=== PATIENT | male | born 1935 | race Caucasian/White ===

== ENCOUNTER 2020-05-27 13:26 | Emergency (ER) | payer OTHER, BC ==
[~2020-05-27] VITALS: Ht 188 cm; Wt 105.7 kg
[2020-05-27 14:48] LABS: BASOPHILS # (AUTO) 0.1 X10'3 (0-0.2); BASOPHILS % (AUTO) 0.5 % (0-1); EOSINOPHILS # (AUTO) 0.3 X10'3 (0-0.9); EOSINOPHILS % (AUTO) 2.7 % (0-6); HEMATOCRIT 41.6 % (42.0-52.0); HEMOGLOBIN 13.2 g/dl (14.0-17.9); LYMPHOCYTES # (AUTO) 1.8 X10'3 (1.1-4.8); LYMPHOCYTES % (AUTO) 15.9 % (21-51); MEAN CORPUSCULAR HEMOGLOBIN 26.1 PG (27.0-31.0); MEAN CORPUSCULAR HGB CONC 31.7 g/dL (33.0-36.5); MEAN CORPUSCULAR VOLUME 82.2 FL (78-98); MONOCYTES # (AUTO) 0.7 X10'3 (0-0.9); MONOCYTES % (AUTO) 6.1 % (2-12); NEUTROPHILS # (AUTO) 8.3 X10'3 (1.8-7.7); NEUTROPHILS % (AUTO) 74.8 % (42-75); PLATELET COUNT 353 X10'3 (140-440); RED BLOOD COUNT 5.06 X10'6 (4.70-6.10); RED CELL DISTRIBUTION WIDTH 13.8 % (11.5-14.5); WHITE BLOOD COUNT 11.1 X10'3 (4.5-11.0)
[2020-05-27 15:03] LABS: ALANINE AMINOTRANSFERASE 22 U/L (12-78); ALBUMIN 3.7 G/DL (3.4-5.0); ALBUMIN/GLOBULIN RATIO 1.1 (1.1-1.5); ALKALINE PHOSPHATASE 86 IU/L (46-116); ANION GAP 10 (8-16); ASPARTATE AMINO TRANSFERASE 18 U/L (10-37); BILIRUBIN,TOTAL 0.4 MG/DL (0.1-1.0); BLOOD UREA NITROGEN 15 MG/DL (7-18); CALCIUM 8.8 MG/DL (8.5-10.1); CHLORIDE 105 MMOL/L (99-107); CREATININE 1.25 MG/DL (0.60-1.10); GLUCOSE 126 MG/DL (70-104); POTASSIUM 4.3 MMOL/L (3.5-5.1); SODIUM 141 MMOL/L (135-145); TOTAL CARBON DIOXIDE 26.3 MMOL/L (24-32); eGFR 55 ML/MIN
[2020-05-27 15:11] LABS: MAGNESIUM 1.9 MG/DL (1.5-2.4)
[2020-05-27] MEDS ORDERED: aspirin 325mg tablet PO ONE (15:30)
[2020-05-27] MEDS ORDERED: amiodarone 150mg/dext, iso-os 100 ML IV ONE (16:45)
[2020-05-27] MEDS ORDERED: AMIO200T61 PO (16:49)
[2020-05-27 17:08] VITALS: BP 114/55
== END 2020-05-27 17:37 | disposition home or self-care (01) ==
LOC: ER 13:27
DX: R77.8 Other specified abnormalities of plasma proteins (principal); I25.10 Atherosclerotic heart disease of native coronary artery without angina pectoris; Z98.890 Other specified postprocedural states; Z95.0 Presence of cardiac pacemaker; Z72.89 Other problems related to lifestyle; Z79.899 Other long term (current) drug therapy
CPT/HCPCS: 36415; 71045; 80053; 83735; 83880; 84100; 84484; 85025; 96365; 96374; 99285

== ENCOUNTER 2023-02-05 11:03 | Inpatient (IN) | payer OTHER, MEDICARE ==
[~2023-02-05] VITALS: Ht 188 cm; Wt 84.1 kg
--- NOTE | 2023-02-05 12:03 | NUR ---
DAUGHTER MEETA [phone]
[2023-02-05 14:36] LABS: CLARITY,URINE BLOODY (Clear); COLOR,URINE RED (Yellow); UA COLLECTION TYPE CLN CATCH MIDSTREAM
[2023-02-05 14:38] LABS: RBC,URINE TNTC /HPF (0-2)
[2023-02-05 14:39] LABS: BACTERIA,URINE FEW /HPF (Neg); SQUAMOUS EPITHELIAL CELL,UR NONE SEEN /LPF (FEW)
[2023-02-05 17:02] LABS: BASOPHILS % (AUTO) 0.4 % (0-1); EOSINOPHILS # (AUTO) 0.2 X10'3 (0-0.9); EOSINOPHILS % (AUTO) 2.1 % (0-6); HEMATOCRIT 34.8 % (42.0-52.0); HEMOGLOBIN 11.3 g/dl (14.0-17.9); LYMPHOCYTES % (AUTO) 16.6 % (21-51); MEAN CORPUSCULAR HEMOGLOBIN 29.3 PG (27.0-31.0); MEAN CORPUSCULAR HGB CONC 32.6 g/dL (33.0-36.5); MEAN PLATELET VOLUME 7.6 FL (7.4-10.4); MONOCYTES # (AUTO) 0.9 X10'3 (0-0.9); MONOCYTES % (AUTO) 7.5 % (2-12); NEUTROPHILS # (AUTO) 8.8 X10'3 (1.8-7.7); NEUTROPHILS % (AUTO) 73.4 % (42-75); PLATELET COUNT 381 X10'3 (140-440); RED BLOOD COUNT 3.87 X10'6 (4.70-6.10); RED CELL DISTRIBUTION WIDTH 14.6 % (11.5-14.5)
[2023-02-05 17:23] LABS: ALANINE AMINOTRANSFERASE 25 U/L (12-78); ALBUMIN 3.8 G/DL (3.4-5.0); ALKALINE PHOSPHATASE 72 IU/L (46-116); ANION GAP 12 (8-16); ASPARTATE AMINO TRANSFERASE 31 U/L (10-37); BILIRUBIN,TOTAL 0.5 MG/DL (0.1-1.0); BLOOD UREA NITROGEN 75 MG/DL (7-18); BUN/CREATININE RATIO 30.5 (10.0-20.0); CALCIUM 9.5 MG/DL (8.5-10.1); CHLORIDE 105 MMOL/L (99-107); CREATININE 2.46 MG/DL (0.60-1.10); GLUCOSE 162 MG/DL (70-104); POTASSIUM 4.9 MMOL/L (3.5-5.1); SODIUM 137 MMOL/L (135-145); TOTAL CARBON DIOXIDE 19.7 MMOL/L (24-32); TOTAL PROTEIN 7.5 G/DL (6.4-8.2); eCRCL 26 ML/MIN; eGFR 25 ML/MIN
[2023-02-05] MEDS ORDERED: insulin Lispro (HumaLOG) vial - multi-dose SQ SCH (18:40)
[2023-02-05] MEDS ORDERED: acetaminophen 325mg tablet PO PRN (18:40)
[2023-02-05] MEDS ORDERED: magnesium Cl slow-release 64mg tablet PO PRN (18:40)
[2023-02-05] MEDS ORDERED: HYDROcodone/acetaminophen 10/325mg tab PO PRN (18:40)
[2023-02-05] MEDS ORDERED: dextrose 50%-water 50ml dispensing syringe IV PRN ×2 (18:40)
[2023-02-05] MEDS ORDERED: mag hydrox/Alum hydrox/simeth 30ml oral suspension PO PRN (18:40)
[2023-02-05] MEDS ORDERED: magnesium 4gm in 100ml NS 100 ML IV PRN (18:40)
[2023-02-05] MEDS ORDERED: HYDROcodone/acetaminophen 5mg/325mg tablet PO PRN (18:40)
[2023-02-05] MEDS ORDERED: ondansetron/PF 4mg/2ml inj IV PRN (18:40)
[2023-02-05] MEDS ORDERED: potassium Cl 20 mEq SR tablet PO PRN ×2 (18:40)
[2023-02-05] MEDS ORDERED: potassium Cl 40MEQ/1/2NS 520ml 520 ML IV PRN (18:40)
[2023-02-05] MEDS ORDERED: DEXTROSE 15 GM of carb/4 tabs (each vial/BOTTLE has 4 tablets) PO PRN ×2 (18:40)
[2023-02-05] MEDS ORDERED: magnesium 2GM in 50ml NS 50 ML IV PRN (18:40)
[2023-02-05] MEDS ORDERED: magnesium hydroxide 30ml (MOM) UD suspension PO PRN (18:40)
[2023-02-05] MEDS ORDERED: MESSAGE TO PHARMACY PO ONE (18:40)
[2023-02-05] MEDS ORDERED: glucagon, human recombinant 1mg kit SUBCUT PRN (18:40)
[2023-02-05] MEDS ORDERED: diphenhydrAMINE 25mg capsule PO PRN (18:40)
[2023-02-05] MEDS: K and/or MAG REPLACEMENT MC SCH (19:08)
[2023-02-05 19:17] LABS: HEMOGLOBIN A1C 5.2 % (4.5-6.2)
[2023-02-05] MEDS ORDERED: FURO20TA4 PO (20:10)
[2023-02-05] MEDS ORDERED: METO50TA16 PO (20:10)
[2023-02-05] MEDS ORDERED: SPIR25TA5 PO (20:10)
[2023-02-05] MEDS: docusate sod 100mg capsule PO SCH (20:12)
[2023-02-05 20:30] VITALS: BP 141/71; PULSE 89; RESP 16; TEMP 97.8; O2SAT 92
[2023-02-05] MEDS: insulin glargine (Lantus) pen - multi-dose SQ SCH (21:00)
[2023-02-05] MEDS ORDERED: APIX5TAB3 PO (21:49)
[2023-02-05] MEDS: CefTRIAXone/D5W-Rocephin 1gm 50 ML IV SCH (22:09)
[2023-02-05 22:30] VITALS: BP 128/48; PULSE 81; RESP 16; TEMP 97.9; O2SAT 97
[2023-02-06] MEDS: potassium CL 20mEq in D5-1/2NS 1,000 ML IV SCH ×2 (01:46→13:30)
[2023-02-06 06:00] VITALS: BP 113/54; PULSE 81; RESP 16; TEMP 97.3; O2SAT 98
--- NOTE | 2023-02-06 06:04 | NUR ---
reported to days. noted pt on iv fluids, voiding w/o difficulty with clots noted at this time.
[2023-02-06 06:52] LABS: BASOPHILS % (AUTO) 0.4 % (0-1); EOSINOPHILS # (AUTO) 0.3 X10'3 (0-0.9); EOSINOPHILS % (AUTO) 2.8 % (0-6); HEMATOCRIT 33.2 % (42.0-52.0); HEMOGLOBIN 11.1 g/dl (14.0-17.9); LYMPHOCYTES # (AUTO) 2.1 X10'3 (1.1-4.8); LYMPHOCYTES % (AUTO) 18.3 % (21-51); MEAN CORPUSCULAR HGB CONC 33.4 g/dL (33.0-36.5); MEAN CORPUSCULAR VOLUME 89.8 FL (78-98); MEAN PLATELET VOLUME 8.1 FL (7.4-10.4); MONOCYTES # (AUTO) 0.9 X10'3 (0-0.9); MONOCYTES % (AUTO) 7.8 % (2-12); NEUTROPHILS # (AUTO) 8.3 X10'3 (1.8-7.7); NEUTROPHILS % (AUTO) 70.7 % (42-75); PLATELET COUNT 365 X10'3 (140-440); RED BLOOD COUNT 3.69 X10'6 (4.70-6.10); RED CELL DISTRIBUTION WIDTH 14.5 % (11.5-14.5); WHITE BLOOD COUNT 11.7 X10'3 (4.5-11.0)
[2023-02-06 07:21] LABS: ALANINE AMINOTRANSFERASE 26 U/L (12-78); ALBUMIN 3.5 G/DL (3.4-5.0); ALKALINE PHOSPHATASE 67 IU/L (46-116); ANION GAP 12 (8-16); ASPARTATE AMINO TRANSFERASE 32 U/L (10-37); BILIRUBIN,TOTAL 0.4 MG/DL (0.1-1.0); BLOOD UREA NITROGEN 68 MG/DL (7-18); BUN/CREATININE RATIO 30.1 (10.0-20.0); CALCIUM 9.3 MG/DL (8.5-10.1); CHLORIDE 107 MMOL/L (99-107); CREATININE 2.26 MG/DL (0.60-1.10); GLUCOSE 182 MG/DL (70-104); MAGNESIUM 2.7 MG/DL (1.5-2.4); POTASSIUM 4.6 MMOL/L (3.5-5.1); SODIUM 137 MMOL/L (135-145); TOTAL CARBON DIOXIDE 18.2 MMOL/L (24-32); TOTAL PROTEIN 7.1 G/DL (6.4-8.2); eCRCL 28 ML/MIN; eGFR 28 ML/MIN
[2023-02-06 07:24] LABS: % IRON SATURATION 16 % (11-46); IRON 39 UG/DL (53-167); TOTAL IRON BINDING CAPACITY 243 UG/DL (259-388)
[2023-02-06] MEDS: docusate sod 100mg capsule PO SCH ×2 (07:51→20:00)
[2023-02-06] MEDS: lactose-reduced food (Ensure Enlive) - 237ml bottle PO SCH ×4 (07:52→21:37)
[2023-02-06 08:00] VITALS: RESP 14
[2023-02-06] MEDS ORDERED: furosemide 20MG tablet PO SCH (08:00)
[2023-02-06] MEDS ORDERED: spironolactone 25 MG tablet PO SCH (08:00)
[2023-02-06] MEDS: K and/or MAG REPLACEMENT MC SCH ×2 (08:00→20:00)
[2023-02-06 08:07] LABS: FERRITIN 295 NG/ML (26-388)
[2023-02-06] MEDS: metoprolol tartrate 50mg tablet PO SCH ×2 (08:24→21:20)
[2023-02-06 10:03] VITALS: BP 140/61; PULSE 83; RESP 16; TEMP 97.2; O2SAT 96
--- NOTE | 2023-02-06 11:27 | NUR ---
DM/Malnutrition Consults: Pt admit DX UTI, polyuria, hematuria, afib, anemia, and acute renal failure per EMR. Pt hx DM though current A1C 5.2% on renal/heart healthy/carb controlled/EC7/thin diets w/ no teeth in EMR; RD d/w resident MD who is agreeable to regular diet given age-updated diet now in EMR. RD notified dietary will send chopped meats for ease of PO given no teeth. Pt presents w/ mild weakness, no edema, nickel sized open area to R buttock and pending scaled wt this admit w/ no recent scaled wt hx in EMR. Pt appears WD/WN per MD note w/ PO pending first meal WB this AM in EMR. At this time pt lacks minimum two malnutrition criteria. Noted Ensure Enlive TIDWM ordered to start today per MD; will monitor for further nutrition intervention needs and malnutrition criteria this admit. Rec: 1. continue regular/EC7/thin diet w/ chopped meats for ease of PO since no teeth per MD; continue regular diet given age/stature 2. Ensure Enlive TIDWM per MD; encourage PO meals/ONS Addendum: 02/06/23 at [address] Amended: Links added.
[2023-02-06 18:00] VITALS: BP 146/53; PULSE 79; RESP 16; TEMP 97.6; O2SAT 99
--- NOTE | 2023-02-06 19:11 | NUR ---
Problems reprioritized. Patient report given, questions answered & plan of care reviewed with Yara ANTHONY.
[2023-02-06] MEDS: insulin glargine (Lantus) pen - multi-dose SQ SCH (21:00)
[2023-02-06 21:17] VITALS: BP 126/55; PULSE 83; RESP 16; O2SAT 99
[2023-02-06] MEDS: CefTRIAXone/D5W-Rocephin 1gm 50 ML IV SCH (21:37)
[2023-02-06 22:00] VITALS: BP 126/48; PULSE 63; RESP 16; TEMP 97.5; O2SAT 97
--- NOTE | 2023-02-06 22:00 | NUR ---
PT WILL ALLOW US TO TAKE HIS BLOOD SUGAR BUT REFUSES ANY INSULIN. DOES NOT TAKE IT AT HOME AND DOES NOT WANT TO TAKE IT AT THE HOSPITAL EITHER.
[2023-02-07] MEDS: potassium CL 20mEq in D5-1/2NS 1,000 ML IV SCH (02:50)
[2023-02-07 06:00] VITALS: BP 124/44; PULSE 64; RESP 16; TEMP 97.8; O2SAT 99
[2023-02-07 06:16] LABS: BASOPHILS % (AUTO) 0.3 % (0-1); EOSINOPHILS # (AUTO) 0.3 X10'3 (0-0.9); EOSINOPHILS % (AUTO) 2.2 % (0-6); HEMATOCRIT 31.4 % (42.0-52.0); HEMOGLOBIN 10.3 g/dl (14.0-17.9); LYMPHOCYTES # (AUTO) 1.8 X10'3 (1.1-4.8); LYMPHOCYTES % (AUTO) 13.1 % (21-51); MEAN CORPUSCULAR HEMOGLOBIN 29.5 PG (27.0-31.0); MEAN CORPUSCULAR HGB CONC 32.9 g/dL (33.0-36.5); MEAN CORPUSCULAR VOLUME 89.7 FL (78-98); MEAN PLATELET VOLUME 8.5 FL (7.4-10.4); MONOCYTES # (AUTO) 1.3 X10'3 (0-0.9); MONOCYTES % (AUTO) 9.3 % (2-12); NEUTROPHILS # (AUTO) 10.3 X10'3 (1.8-7.7); NEUTROPHILS % (AUTO) 75.1 % (42-75); PLATELET COUNT 377 X10'3 (140-440); RED CELL DISTRIBUTION WIDTH 14.2 % (11.5-14.5); WHITE BLOOD COUNT 13.7 X10'3 (4.5-11.0)
[2023-02-07 06:30] LABS: ALANINE AMINOTRANSFERASE 26 U/L (12-78); ALBUMIN 3.2 G/DL (3.4-5.0); ALBUMIN/GLOBULIN RATIO 0.9 (1.1-1.5); ALKALINE PHOSPHATASE 71 IU/L (46-116); ANION GAP 6 (8-16); ASPARTATE AMINO TRANSFERASE 31 U/L (10-37); BILIRUBIN,TOTAL 0.3 MG/DL (0.1-1.0); BLOOD UREA NITROGEN 62 MG/DL (7-18); BUN/CREATININE RATIO 30.5 (10.0-20.0); CALCIUM 9.1 MG/DL (8.5-10.1); CHLORIDE 107 MMOL/L (99-107); CREATININE 2.03 MG/DL (0.60-1.10); GLUCOSE 186 MG/DL (70-104); MAGNESIUM 2.4 MG/DL (1.5-2.4); POTASSIUM 5.4 MMOL/L (3.5-5.1); SODIUM 135 MMOL/L (135-145); TOTAL CARBON DIOXIDE 22.3 MMOL/L (24-32); TOTAL PROTEIN 6.6 G/DL (6.4-8.2); eCRCL 31 ML/MIN; eGFR 31 ML/MIN
--- NOTE | 2023-02-07 06:36 | NUR ---
Problems reprioritized. Patient report given, questions answered & plan of care reviewed with RAJ Sosa.
--- NOTE | 2023-02-07 06:45 | NUR ---
Patient in room ORTHO 4014. I have received report from ed fermin and had the opportunity to ask questions and assume patient care.
[2023-02-07] MEDS: K and/or MAG REPLACEMENT MC SCH (08:00)
--- NOTE | 2023-02-07 08:30 | NUR ---
Problems reprioritized. Patient report given, questions answered & plan of care reviewed with nilda fermin.
[2023-02-07] MEDS: docusate sod 100mg capsule PO SCH (09:27)
[2023-02-07 09:28] VITALS: BP_SYST 124; PULSE 64
[2023-02-07] MEDS: metoprolol tartrate 50mg tablet PO SCH (09:28)
[2023-02-07] MEDS ORDERED: LEVO-65 PO (10:49)
--- NOTE | 2023-02-07 13:46 | NUR ---
Patient in room ORTHO 4013. I have received report from nilda fermin and had the opportunity to ask questions and assume patient care.
--- NOTE | 2023-02-07 14:06 | NUR ---
pt is stable for dc, all info gone over and signed, break nurse ramos'd the pt while at a mandatory meeting, the iv was dc and gathered all pts belongings. pt was wheeled down to the lobby and left in a private vehicle with cable rigger to home.
== END 2023-02-07 11:55 | disposition home or self-care (01) | DRG 689 ==
LOC: ER 11:03 → ED HOLD 18:47 → ORTHO 4S 20:28
PROVIDERS: ADMIT Internal Medicine; ATTEND Internal Medicine
DX: N39.0 Urinary tract infection, site not specified (principal); N17.0 Acute kidney failure with tubular necrosis; E11.9 Type 2 diabetes mellitus without complications; I10 Essential (primary) hypertension; I25.10 Atherosclerotic heart disease of native coronary artery without angina pectoris; D64.9 Anemia, unspecified; R31.0 Gross hematuria; I48.91 Unspecified atrial fibrillation; R32 Unspecified urinary incontinence; Z87.891 Personal history of nicotine dependence; Z95.1 Presence of aortocoronary bypass graft
CPT/HCPCS: 36415; 74176; 80053; 81001; 82607; 82728; 82948; 83036; 83540; 83550; 83735; 85025; 87081; 93306; 97110; 97161; 97530; 99285; A6212; G0378; J0696; J1815; J3480

== ENCOUNTER 2023-02-11 10:55 | Inpatient (IN) | payer OTHER, MEDICARE ==
[~2023-02-11] VITALS: Ht 188 cm; Wt 81.8 kg
[~2023-02-11 10:55] MED LIST: APIX5TAB3 PO; FURO20TA4 PO; LEVO-65 PO; METO50TA16 PO
[2023-02-11 12:23] LABS: COLOR,URINE RED (Yellow)
[2023-02-11 12:25] LABS: CLARITY,URINE BLOODY (Clear); UA COLLECTION TYPE CLN CATCH MIDSTREAM
[2023-02-11 12:26] LABS: BASOPHILS % (AUTO) 0.2 % (0-1); EOSINOPHILS # (AUTO) 0.2 X10'3 (0-0.9); HEMOGLOBIN 10.1 g/dl (14.0-17.9); LYMPHOCYTES # (AUTO) 1.7 X10'3 (1.1-4.8)
[2023-02-11 12:28] LABS: EOSINOPHILS % (AUTO) 1.3 % (0-6); HEMATOCRIT 30.5 % (42.0-52.0); MEAN CORPUSCULAR HEMOGLOBIN 29.4 PG (27.0-31.0); MEAN PLATELET VOLUME 8.1 FL (7.4-10.4); MONOCYTES % (AUTO) 6.2 % (2-12); NEUTROPHILS # (AUTO) 13.7 X10'3 (1.8-7.7); NEUTROPHILS % (AUTO) 82.3 % (42-75); PLATELET COUNT 428 X10'3 (140-440); RED BLOOD COUNT 3.42 X10'6 (4.70-6.10); WHITE BLOOD COUNT 16.7 X10'3 (4.5-11.0)
[2023-02-11 12:35] LABS: BACTERIA,URINE FEW /HPF (Neg); MUCUS STRANDS NONE SEEN /LPF (Neg); RBC,URINE TNTC /HPF (0-2); SQUAMOUS EPITHELIAL CELL,UR FEW /LPF (FEW)
[2023-02-11 12:37] LABS: ALANINE AMINOTRANSFERASE 51 U/L (12-78); ALBUMIN 3.2 G/DL (3.4-5.0); ALBUMIN/GLOBULIN RATIO 0.8 (1.1-1.5); ALKALINE PHOSPHATASE 92 IU/L (46-116); ANION GAP 8 (8-16); ASPARTATE AMINO TRANSFERASE 34 U/L (10-37); BILIRUBIN,TOTAL 0.5 MG/DL (0.1-1.0); BLOOD UREA NITROGEN 54 MG/DL (7-18); BUN/CREATININE RATIO 27.8 (10.0-20.0); CALCIUM 8.9 MG/DL (8.5-10.1); CHLORIDE 97 MMOL/L (99-107); CREATININE 1.94 MG/DL (0.60-1.10); GLUCOSE 188 MG/DL (70-104); POTASSIUM 5.1 MMOL/L (3.5-5.1); SODIUM 127 MMOL/L (135-145); TOTAL CARBON DIOXIDE 21.6 MMOL/L (24-32); TOTAL PROTEIN 7.1 G/DL (6.4-8.2); eCRCL 32 ML/MIN; eGFR 33 ML/MIN
[2023-02-11] MEDS ORDERED: LidoCAINE 2% Topical Jelly 11mL syringe MM ONE (13:20)
[2023-02-11] MEDS ORDERED: LIDOcaine 2% 10ml TOPICAL JELLY (Urojet) MM ONE (13:20)
[2023-02-11] MEDS ORDERED: normal saline 1000ml 1,000 ML IV ONE (13:45)
[2023-02-11 14:30] LABS: APTT 34 SECONDS (22-32); INR 1.1 INR; PROTHROMBIN TIME 11.4 SECONDS (9.0-12.0)
[2023-02-11] MEDS ORDERED: ondansetron/PF 4mg/2ml inj IV PRN (14:55)
[2023-02-11] MEDS ORDERED: potassium Cl 40MEQ/1/2NS 520ml 520 ML IV PRN (14:55)
[2023-02-11] MEDS ORDERED: mag hydrox/Alum hydrox/simeth 30ml oral suspension PO PRN (14:55)
[2023-02-11] MEDS ORDERED: magnesium 4gm in 100ml NS 100 ML IV PRN (14:55)
[2023-02-11] MEDS ORDERED: acetaminophen 325mg tablet PO PRN ×2 (14:55)
[2023-02-11] MEDS ORDERED: potassium Cl 20 mEq SR tablet PO PRN ×2 (14:55)
[2023-02-11] MEDS ORDERED: magnesium 2GM in 50ml NS 50 ML IV PRN (14:55)
[2023-02-11] MEDS ORDERED: magnesium Cl slow-release 64mg tablet PO PRN (14:55)
[2023-02-11] MEDS ORDERED: morphine 2 MG/ML inj. syringe IV PRN ×2 (14:55)
[2023-02-11] MEDS ORDERED: HYDROcodone/acetaminophen 10/325mg tab PO PRN (14:55)
[2023-02-11] MEDS ORDERED: HYDROcodone/acetaminophen 5mg/325mg tablet PO PRN (14:55)
[2023-02-11] MEDS ORDERED: magnesium hydroxide 30ml (MOM) UD suspension PO PRN (14:55)
--- NOTE | 2023-02-11 15:02 | NUR ---
PT A/X 4 IN NAD. PT HDA 3-WAY TIRADO CATH WITH CBI, RATE SLOWD URINE IS RUNNING CLEAR.
--- NOTE | 2023-02-11 15:04 | NUR ---
CBI 1500 ML IN, 1999 OUT.
[2023-02-11] MEDS: normal saline 1000ml 1,000 ML IV SCH ×3 (15:36→17:13)
[2023-02-11] MEDS: CefTRIAXone/D5W-Rocephin 1gm 50 ML IV SCH (16:10)
[2023-02-11 16:25] LABS: POTASSIUM 5.2 MMOL/L (3.5-5.1)
[2023-02-11] MEDS ORDERED: ALOG12.5 PO (16:50)
[2023-02-11] MEDS ORDERED: DICL100G59 TOP (16:51)
[2023-02-11] MEDS ORDERED: DOXA4TAB3 PO (16:52)
[2023-02-11] MEDS ORDERED: DIGO250T4 PO (16:52)
[2023-02-11] MEDS ORDERED: GLIP10TA11 PO (16:53)
[2023-02-11] MEDS ORDERED: METF-900 PO (16:54)
[2023-02-11] MEDS ORDERED: LOSA100T58 PO (16:54)
[2023-02-11] MEDS ORDERED: OMEP20CA16 PO (16:55)
[2023-02-11] MEDS ORDERED: FLO0.4C PO (16:56)
[2023-02-11] MEDS ORDERED: SPIR25TA5 PO (16:56)
[2023-02-11] MEDS ORDERED: SIMV-342 PO (16:56)
--- NOTE | 2023-02-11 18:07 | NUR ---
PT A/O X4 IN NAD. PT ATE MINIMAL EVENING MEAL
[2023-02-11] MEDS: K and/or MAG REPLACEMENT MC SCH (19:02)
[2023-02-11] MEDS ORDERED: dextrose 50%-water 50ml dispensing syringe IV PRN ×2 (19:55)
[2023-02-11] MEDS ORDERED: glucagon, human recombinant 1mg kit SUBCUT PRN (19:55)
[2023-02-11] MEDS ORDERED: insulin Lispro (HumaLOG) vial - multi-dose SQ SCH (19:55)
[2023-02-11] MEDS ORDERED: DEXTROSE 15 GM of carb/4 tabs (each vial/BOTTLE has 4 tablets) PO PRN ×2 (19:55)
[2023-02-11] MEDS ORDERED: MESSAGE TO PHARMACY PO ONE (19:55)
[2023-02-11] MEDS: atorvastatin 10mg tablet PO SCH (20:42)
[2023-02-11] MEDS: metoprolol tartrate 50mg tablet PO SCH (20:42)
[2023-02-11] MEDS: insulin glargine (Lantus) pen - multi-dose SQ SCH (20:43)
[2023-02-11 21:03] LABS: DIGOXIN 0.7 NG/ML (0.9-1.9)
[2023-02-12] VITALS (7 sets, daily range): BP systolic 109–124; BP diastolic 41–53; PULSE 62–73; RESP 14–18; TEMP 97.5–98.1; O2SAT 98–99
[2023-02-12] MEDS: normal saline 1000ml 1,000 ML IV SCH ×2 (03:45→14:22)
[2023-02-12 06:41] LABS: BASOPHILS # (AUTO) 0.1 X10'3 (0-0.2); BASOPHILS % (AUTO) 0.5 % (0-1); EOSINOPHILS # (AUTO) 0.2 X10'3 (0-0.9); EOSINOPHILS % (AUTO) 2.3 % (0-6); HEMATOCRIT 28.1 % (42.0-52.0); HEMOGLOBIN 9.5 g/dl (14.0-17.9); LYMPHOCYTES # (AUTO) 1.7 X10'3 (1.1-4.8); LYMPHOCYTES % (AUTO) 15.3 % (21-51); MEAN CORPUSCULAR HEMOGLOBIN 30.3 PG (27.0-31.0); MEAN CORPUSCULAR HGB CONC 33.7 g/dL (33.0-36.5); MEAN CORPUSCULAR VOLUME 89.9 FL (78-98); MONOCYTES # (AUTO) 0.8 X10'3 (0-0.9); MONOCYTES % (AUTO) 7.6 % (2-12); NEUTROPHILS % (AUTO) 74.3 % (42-75); PLATELET COUNT 356 X10'3 (140-440); RED BLOOD COUNT 3.13 X10'6 (4.70-6.10); RED CELL DISTRIBUTION WIDTH 14.1 % (11.5-14.5); WHITE BLOOD COUNT 10.8 X10'3 (4.5-11.0)
[2023-02-12 06:48] LABS: APTT 34 SECONDS (22-32); INR 1.1 INR; PROTHROMBIN TIME 11.5 SECONDS (9.0-12.0)
[2023-02-12 07:07] LABS: ALANINE AMINOTRANSFERASE 36 U/L (12-78); ALBUMIN 2.7 G/DL (3.4-5.0); ALBUMIN/GLOBULIN RATIO 0.8 (1.1-1.5); ALKALINE PHOSPHATASE 71 IU/L (46-116); ANION GAP 5 (8-16); ASPARTATE AMINO TRANSFERASE 21 U/L (10-37); BILIRUBIN,TOTAL 0.3 MG/DL (0.1-1.0); BLOOD UREA NITROGEN 36 MG/DL (7-18); BUN/CREATININE RATIO 22.6 (10.0-20.0); CALCIUM 8.8 MG/DL (8.5-10.1); CHLORIDE 107 MMOL/L (99-107); CHOL/HDL RATIO 3.6 (0.00-4.99); CHOLESTEROL 96 MG/DL (0-200); CREATININE 1.59 MG/DL (0.60-1.10); GLUCOSE 122 MG/DL (70-104); HDL CHOLESTEROL 27 MG/DL (35-60); LDL CHOLESTEROL 51 MG/DL (50-100); MAGNESIUM 2.2 MG/DL (1.5-2.4); PHOSPHORUS 3.6 MG/DL (2.3-4.5); THYROID STIMULATING HORMONE 0.08 ulU/ml (0.34-4.50); TOTAL CARBON DIOXIDE 24.7 MMOL/L (24-32); TOTAL PROTEIN 6.1 G/DL (6.4-8.2); TRIGLYCERIDES 69 MG/DL (20-135); eCRCL 39 ML/MIN; eGFR 42 ML/MIN
[2023-02-12 07:16] LABS: POTASSIUM 4.5 MMOL/L (3.5-5.1)
[2023-02-12 07:18] LABS: SODIUM 137 MMOL/L (135-145)
[2023-02-12] MEDS: K and/or MAG REPLACEMENT MC SCH ×2 (07:28→20:00)
[2023-02-12] MEDS: losartan 50mg tablet PO SCH (08:00)
[2023-02-12] MEDS: metoprolol tartrate 50mg tablet PO SCH ×2 (10:05→19:37)
[2023-02-12] MEDS: pantoprazole 40mg Tablet.DR PO SCH (10:06)
[2023-02-12] MEDS: digoxin 250mcg (0.25mg) tablet PO SCH (10:06)
[2023-02-12] MEDS: tamsulosin 0.4mg capsule PO SCH (10:07)
[2023-02-12] MEDS: furosemide 20MG tablet PO SCH (10:09)
[2023-02-12] MEDS: doxazosin mesylate 2mg tablet PO SCH (10:11)
[2023-02-12] MEDS: CefTRIAXone/D5W-Rocephin 1gm 50 ML IV SCH (10:27)
[2023-02-12] MEDS: spironolactone 25 MG tablet PO SCH (10:28)
--- NOTE | 2023-02-12 12:27 | NUR ---
Pt's a1c is 5.2, will skip accucheck for lunch. pt is sleeping comfortably.
--- NOTE | 2023-02-12 12:55 | NUR ---
Malnutrition consult: Pt reports 14-23 lb wt loss with decreased appetite/PO intake per malnutrition risk screen with RN. Attempted visit with pt at bedside however pt sleeping and did not wake with verbal cues. RD contact information left at bedside. Noted some visible mild muscle wasting at bilat temples with clavicles present, however unsure if this is patient's baseline appearance. Current scaled weight is 81.82 kg which is down from recent documented wt h/o 84.09 kg 02/05, though this is not a scaled weight. Pt currently on a CHO controlled diet, documented with 25% PO intake of first meal. Recommend advancing to regular diet in view of geriatric age and T2DM well controlled with most recent A1c 5.2% 02/05. Pt with no documented significant decrease in muscle strength or edema. Unable to fully assess for malnutrition at this time d/t limited information. Will f/u at another time. Recommendations: 1) Liberalize to regular diet, A1c 5.2% 02/05 2) Monitor need for ONS-pt with 100% PO intake of Ensure Enlive at recent admit 02/05 Addendum: 02/12/23 at [address] Amended: Links added.
[2023-02-12] MEDS ORDERED: DICLOFENAC SODIUM 1% gel 1 APPLIC APPLIC TP PRN (15:40)
--- NOTE | 2023-02-12 18:15 | NUR ---
Patient in room ORTHO 4023. I have received report from MEGAN. Patito ANTHONY and had the opportunity to ask questions and assume patient care.
--- NOTE | 2023-02-12 18:33 | NUR ---
Pt resting comfortably, pleasant, no new complaints. Pt ate dinner.
[2023-02-12] MEDS: atorvastatin 10mg tablet PO SCH (20:11)
[2023-02-12] MEDS: insulin glargine (Lantus) pen - multi-dose SQ SCH (21:00)
[2023-02-13] MEDS: normal saline 1000ml 1,000 ML IV SCH ×3 (00:43→23:42)
[2023-02-13 05:17] LABS: APTT 33 SECONDS (22-32); INR 1.1 INR; PROTHROMBIN TIME 11.4 SECONDS (9.0-12.0)
[2023-02-13 05:23] LABS: ALANINE AMINOTRANSFERASE 30 U/L (12-78); ALBUMIN 2.4 G/DL (3.4-5.0); ALKALINE PHOSPHATASE 64 IU/L (46-116); ANION GAP 7 (8-16); ASPARTATE AMINO TRANSFERASE 18 U/L (10-37); BILIRUBIN,TOTAL 0.3 MG/DL (0.1-1.0); BLOOD UREA NITROGEN 29 MG/DL (7-18); BUN/CREATININE RATIO 18.5 (10.0-20.0); CALCIUM 8.4 MG/DL (8.5-10.1); CHLORIDE 108 MMOL/L (99-107); CREATININE 1.57 MG/DL (0.60-1.10); PHOSPHORUS 3.3 MG/DL (2.3-4.5); POTASSIUM 4.2 MMOL/L (3.5-5.1); SODIUM 138 MMOL/L (135-145); TOTAL CARBON DIOXIDE 23.2 MMOL/L (24-32); eCRCL 40 ML/MIN; eGFR 42 ML/MIN
[2023-02-13 05:24] LABS: BASOPHILS # (AUTO) 0.1 X10'3 (0-0.2); BASOPHILS % (AUTO) 0.5 % (0-1); EOSINOPHILS # (AUTO) 0.3 X10'3 (0-0.9); EOSINOPHILS % (AUTO) 2.6 % (0-6); HEMATOCRIT 24.7 % (42.0-52.0); HEMOGLOBIN 8.2 g/dl (14.0-17.9); LYMPHOCYTES # (AUTO) 2.2 X10'3 (1.1-4.8); LYMPHOCYTES % (AUTO) 20.4 % (21-51); MEAN CORPUSCULAR HEMOGLOBIN 29.7 PG (27.0-31.0); MEAN CORPUSCULAR VOLUME 90.1 FL (78-98); MEAN PLATELET VOLUME 8.1 FL (7.4-10.4); MONOCYTES # (AUTO) 0.8 X10'3 (0-0.9); MONOCYTES % (AUTO) 7.2 % (2-12); NEUTROPHILS # (AUTO) 7.6 X10'3 (1.8-7.7); NEUTROPHILS % (AUTO) 69.3 % (42-75); PLATELET COUNT 303 X10'3 (140-440); RED BLOOD COUNT 2.74 X10'6 (4.70-6.10); RED CELL DISTRIBUTION WIDTH 13.8 % (11.5-14.5)
[2023-02-13 05:24] LABS: ALBUMIN/GLOBULIN RATIO 0.8 (1.1-1.5); GLUCOSE 101 MG/DL (70-104); TOTAL PROTEIN 5.4 G/DL (6.4-8.2)
[2023-02-13 06:00] VITALS: BP 108/56; PULSE 64; RESP 18; TEMP 98.1; O2SAT 99
--- NOTE | 2023-02-13 06:44 | NUR ---
Patient in room ORTHO 4023. I have received report from Jennifer ANTHONY and had the opportunity to ask questions and assume patient care.
[2023-02-13] MEDS: spironolactone 25 MG tablet PO SCH (07:31)
[2023-02-13] MEDS: furosemide 20MG tablet PO SCH (07:31)
[2023-02-13] MEDS: pantoprazole 40mg Tablet.DR PO SCH (07:31)
[2023-02-13] MEDS: digoxin 250mcg (0.25mg) tablet PO SCH (07:32)
[2023-02-13] MEDS: tamsulosin 0.4mg capsule PO SCH (07:32)
[2023-02-13] MEDS: losartan 50mg tablet PO SCH (07:32)
[2023-02-13] MEDS: doxazosin mesylate 2mg tablet PO SCH (07:33)
[2023-02-13] MEDS: metoprolol tartrate 50mg tablet PO SCH ×2 (07:33→20:08)
[2023-02-13] MEDS: CefTRIAXone/D5W-Rocephin 1gm 50 ML IV SCH (07:46)
[2023-02-13] MEDS: K and/or MAG REPLACEMENT MC SCH ×2 (08:00→20:00)
[2023-02-13 10:30] VITALS: BP 111/58; PULSE 70; RESP 19; TEMP 97
--- NOTE | 2023-02-13 11:56 | NUR ---
F/u 02/13: Pt carb controlled diet cancelled which is appropriate. Pt seen by RD at bedside for f/u on malnutrition consult. 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 Pt is poor historian regarding weight hx reports 60 pounds loss 2 months, 50 pounds 2 years, and also wt loss past 5 years. Unsure of true wt hx and given this pt lacks minimum two malnutrition criteria. RD encouraged pt to take routine MVM at home. Pt PO ~33% avg initial meals not meeting needs but reports loves food only preference is dislikes cream of wheat-dietary notified. Pt would benefit from Ensure Enlive TID, however, to be discharged this AM per MD note. Will continue to follow. Recommendations: 1) Liberalize to regular diet given age, A1c 5.2% 02/05 2) If pt not discharged today; Ensure Enlive TIDWM Addendum: 02/13/23 at [address] Amended: Links added.
[2023-02-13] MEDS ORDERED: LACT1CAP74 PO (13:56)
[2023-02-13] MEDS ORDERED: CEFD300C17 PO (13:56)
[2023-02-13 14:32] VITALS: RESP 16
[2023-02-13 18:00] VITALS: BP 120/75; PULSE 65; RESP 16; TEMP 98.3; O2SAT 99
[2023-02-13 18:38] VITALS: TEMP 97.5
[2023-02-13] MEDS: atorvastatin 10mg tablet PO SCH (20:08)
[2023-02-13] MEDS: insulin glargine (Lantus) pen - multi-dose SQ SCH (21:00)
[2023-02-13 22:00] VITALS: BP 100/56; PULSE 76; RESP 16; TEMP 98; O2SAT 97
[2023-02-14] VITALS (7 sets, daily range): BP systolic 112–133; BP diastolic 37–77; PULSE 62–93; RESP 16–20; TEMP 97.6–98.3; O2SAT 97–99
[2023-02-14 06:00] LABS: BASOPHILS # (AUTO) 0.1 X10'3 (0-0.2); BASOPHILS % (AUTO) 0.5 % (0-1); EOSINOPHILS # (AUTO) 0.3 X10'3 (0-0.9); EOSINOPHILS % (AUTO) 2.8 % (0-6); HEMATOCRIT 25.3 % (42.0-52.0); HEMOGLOBIN 8.4 g/dl (14.0-17.9); LYMPHOCYTES % (AUTO) 18.6 % (21-51); MEAN CORPUSCULAR HEMOGLOBIN 29.7 PG (27.0-31.0); MEAN CORPUSCULAR HGB CONC 33.3 g/dL (33.0-36.5); MEAN CORPUSCULAR VOLUME 89.4 FL (78-98); MONOCYTES # (AUTO) 0.7 X10'3 (0-0.9); MONOCYTES % (AUTO) 6.5 % (2-12); NEUTROPHILS # (AUTO) 7.6 X10'3 (1.8-7.7); NEUTROPHILS % (AUTO) 71.6 % (42-75); PLATELET COUNT 317 X10'3 (140-440); RED BLOOD COUNT 2.82 X10'6 (4.70-6.10); RED CELL DISTRIBUTION WIDTH 14.2 % (11.5-14.5); WHITE BLOOD COUNT 10.6 X10'3 (4.5-11.0)
[2023-02-14 06:07] LABS: APTT 33 SECONDS (22-32); INR 1.1 INR; PROTHROMBIN TIME 11.5 SECONDS (9.0-12.0)
[2023-02-14 06:16] LABS: ALANINE AMINOTRANSFERASE 25 U/L (12-78); ALBUMIN 2.3 G/DL (3.4-5.0); ALBUMIN/GLOBULIN RATIO 0.8 (1.1-1.5); ALKALINE PHOSPHATASE 59 IU/L (46-116); ANION GAP 5 (8-16); ASPARTATE AMINO TRANSFERASE 18 U/L (10-37); BILIRUBIN,TOTAL 0.3 MG/DL (0.1-1.0); BLOOD UREA NITROGEN 25 MG/DL (7-18); BUN/CREATININE RATIO 16.3 (10.0-20.0); CALCIUM 8.3 MG/DL (8.5-10.1); CHLORIDE 109 MMOL/L (99-107); CREATININE 1.53 MG/DL (0.60-1.10); GLUCOSE 103 MG/DL (70-104); MAGNESIUM 1.8 MG/DL (1.5-2.4); PHOSPHORUS 3.3 MG/DL (2.3-4.5); SODIUM 137 MMOL/L (135-145); TOTAL PROTEIN 5.2 G/DL (6.4-8.2); eCRCL 41 ML/MIN; eGFR 43 ML/MIN
--- NOTE | 2023-02-14 06:26 | NUR ---
Report to Fiordaliza ANTHONY
--- NOTE | 2023-02-14 07:19 | NUR ---
Patient in room ORTHO 4023. I have received report from Fiordaliza ANTHONY and had the opportunity to ask questions and assume patient care.
--- NOTE | 2023-02-14 07:28 | NUR ---
Report given to Elvia KOVACS 1
[2023-02-14] MEDS: K and/or MAG REPLACEMENT MC SCH ×2 (08:00→20:14)
[2023-02-14] MEDS: tamsulosin 0.4mg capsule PO SCH (08:24)
[2023-02-14] MEDS: doxazosin mesylate 2mg tablet PO SCH (08:24)
[2023-02-14] MEDS: pantoprazole 40mg Tablet.DR PO SCH (08:24)
[2023-02-14] MEDS: furosemide 20MG tablet PO SCH (08:24)
[2023-02-14] MEDS: losartan 50mg tablet PO SCH (08:25)
[2023-02-14] MEDS: metoprolol tartrate 50mg tablet PO SCH (08:26)
[2023-02-14] MEDS: digoxin 250mcg (0.25mg) tablet PO SCH (08:29)
[2023-02-14] MEDS: spironolactone 25 MG tablet PO SCH (08:29)
[2023-02-14] MEDS: CefTRIAXone/D5W-Rocephin 1gm 50 ML IV SCH (09:44)
--- NOTE | 2023-02-14 11:05 | NUR ---
Patient states that he is going home today. CM called and asked if patient was dc home or SNF for rehab. Patient does live alone and I feel that he would benefit for the rehab. CM will talk with patient and dtr about this decision.
[2023-02-14] MEDS: normal saline 1000ml 1,000 ML IV SCH (13:59)
[2023-02-14] MEDS ORDERED: lactose-reduced food (Ensure Enlive) - 237ml bottle PO SCH (18:00)
--- NOTE | 2023-02-14 18:00 | NUR ---
I have reviewed and agree with interventions, assessments, and documentation by Elvia Isbell LVN.
--- NOTE | 2023-02-14 18:32 | NUR ---
Problems reprioritized. Patient report given, questions answered & plan of care reviewed with Prudence RN.
--- NOTE | 2023-02-14 18:58 | NUR ---
Patient in room ORTHO 4023. I have received report from BRANDAN KOVACS and had the opportunity to ask questions and assume patient care.
[2023-02-14] MEDS: metoprolol tartrate 25mg tablet PO SCH (20:19)
[2023-02-14] MEDS: atorvastatin 10mg tablet PO SCH (20:19)
[2023-02-14] MEDS: insulin glargine (Lantus) pen - multi-dose SQ SCH (21:00)
[2023-02-15] MEDS: normal saline 1000ml 1,000 ML IV SCH (02:54)
[2023-02-15 06:00] VITALS: BP 130/44; PULSE 64; RESP 16; TEMP 97.8; O2SAT 96
[2023-02-15 06:11] LABS: BASOPHILS % (AUTO) 0.4 % (0-1); EOSINOPHILS # (AUTO) 0.4 X10'3 (0-0.9); EOSINOPHILS % (AUTO) 3.3 % (0-6); HEMATOCRIT 24.1 % (42.0-52.0); LYMPHOCYTES # (AUTO) 2.4 X10'3 (1.1-4.8); MEAN CORPUSCULAR HEMOGLOBIN 29.6 PG (27.0-31.0); MEAN CORPUSCULAR VOLUME 89.7 FL (78-98); MEAN PLATELET VOLUME 7.7 FL (7.4-10.4); MONOCYTES # (AUTO) 0.7 X10'3 (0-0.9); MONOCYTES % (AUTO) 6.3 % (2-12); NEUTROPHILS # (AUTO) 7.9 X10'3 (1.8-7.7); PLATELET COUNT 309 X10'3 (140-440); RED BLOOD COUNT 2.69 X10'6 (4.70-6.10); WHITE BLOOD COUNT 11.4 X10'3 (4.5-11.0)
--- NOTE | 2023-02-15 06:11 | NUR ---
Problems reprioritized. Patient report given, questions answered & plan of care reviewed with BRANDAN KOVACS.
--- NOTE | 2023-02-15 06:15 | NUR ---
Patient in room ORTHO 4023. I have received report from Amelia RN and had the opportunity to ask questions and assume patient care.
[2023-02-15 06:18] LABS: INR 1.1 INR; PROTHROMBIN TIME 11.6 SECONDS (9.0-12.0)
[2023-02-15 06:42] LABS: ALANINE AMINOTRANSFERASE 21 U/L (12-78); ALBUMIN 2.2 G/DL (3.4-5.0); ALBUMIN/GLOBULIN RATIO 0.8 (1.1-1.5); ALKALINE PHOSPHATASE 57 IU/L (46-116); ANION GAP 10 (8-16); ASPARTATE AMINO TRANSFERASE 19 U/L (10-37); BILIRUBIN,TOTAL 0.3 MG/DL (0.1-1.0); BLOOD UREA NITROGEN 23 MG/DL (7-18); BUN/CREATININE RATIO 15.1 (10.0-20.0); CALCIUM 8.3 MG/DL (8.5-10.1); CHLORIDE 109 MMOL/L (99-107); CREATININE 1.52 MG/DL (0.60-1.10); GLUCOSE 101 MG/DL (70-104); MAGNESIUM 1.6 MG/DL (1.5-2.4); PHOSPHORUS 3.1 MG/DL (2.3-4.5); POTASSIUM 4.3 MMOL/L (3.5-5.1); SODIUM 141 MMOL/L (135-145); TOTAL CARBON DIOXIDE 21.6 MMOL/L (24-32); TOTAL PROTEIN 5.1 G/DL (6.4-8.2); eCRCL 41 ML/MIN; eGFR 44 ML/MIN
[2023-02-15 08:00] VITALS: BP 133/39; PULSE 68; RESP 16; O2SAT 97
[2023-02-15] MEDS ORDERED: losartan 50mg tablet PO SCH (08:00)
[2023-02-15] MEDS: K and/or MAG REPLACEMENT MC SCH (08:00)
[2023-02-15] MEDS: CefTRIAXone/D5W-Rocephin 1gm 50 ML IV SCH (08:08)
[2023-02-15] MEDS: digoxin 250mcg (0.25mg) tablet PO SCH (08:14)
[2023-02-15] MEDS: spironolactone 25 MG tablet PO SCH (08:14)
[2023-02-15] MEDS: pantoprazole 40mg Tablet.DR PO SCH (08:15)
[2023-02-15] MEDS: metoprolol tartrate 25mg tablet PO SCH (08:15)
[2023-02-15] MEDS: tamsulosin 0.4mg capsule PO SCH (08:15)
[2023-02-15] MEDS: doxazosin mesylate 2mg tablet PO SCH (08:15)
[2023-02-15 10:00] VITALS: BP 125/41; PULSE 68; RESP 16; TEMP 97.5; O2SAT 97
--- NOTE | 2023-02-15 11:54 | NUR ---
Verbally spoke with Gurmeet HALLMAN with the [facility]. He states that he is always available to help sweet pickled fruit maker patients and transport. Patient is also on the waiting list fo the [facility]. There was a hold up on the patient dorinda. However, it is available now and on its way tot [facility]. This can take up to 6 more months for approval. Addendum: 02/15/23 at 1429 by Elvia Godwin LVN [employer] Elva cell number is [phone] and office number is [phone]
--- NOTE | 2023-02-15 14:29 | NUR ---
Patient discharged to [facility] today. IV removed andall belongings were gathered. Patient is alert and oriented upon leaving. Patient was wheeled down with [facility] cargo, personnel and patient dtr. Patient was placed in [facility] and taken to [facility].
--- NOTE | 2023-02-15 14:35 | NUR ---
PRESSURE ULCER EDUCATION: DEFINITION: A pressure ulcer is an area of skin that breaks down when you stay in one position too long. The constant pressure against the skin reduces the blood flow to that area and the affected tissue dies. CAUSES: "Being bedridden or in a wheelchair "Fragile skin "Having a chronic condition, such as diabetes or vascular disease "Inability to move certain parts of your body without assistance "Older age "Incontinence of urine or stool SYMPTOMS: "A reddened area that DOES NOT turn white when pressed on - this can be the beginning of a pressure ulcer "A blister, deep sore or a crater - these can be advanced pressure ulcers FIRST AID: "Relieve the pressure on this area "Keep the area clean and dry "Call your primary doctor if you see any of the above symptoms "DO NOT massage the area "DO NOT use a donut shaped or ring shaped pillow- these actually interfere with the blood flow and cause complications PREVENTION: "Check for pressure ulcers everyday "Change position at least every two hours to relieve pressure "Use items that help relieve pressure- pillows, sheepskin, foam padding, and powders. "Keep skin clean and dry "Eat healthy well balanced meals "Exercise daily IF YOU SEE ANY OF THESE SYMPTOMS WHILE IN THE HOSPITAL - TELL YOUR NURSE IMMEDIATELY. IF YOU SEE ANY OF THESE SYMPTOMS WHILE AT HOME OR HAVE ANY QUESTIONS OR CONCERNS ABOUT PRESSURE ULCERS - CALL YOUR PRIMARY DOCTOR IMMEDIATELY. Addendum: 02/15/23 at 1436 by Leigh Escobedo LVN Amended: Links added.
--- NOTE | 2023-02-15 15:00 | NUR ---
I have reviewed and agree with interventions, assessments, and documentation by Elvia Isbell LVN.
--- NOTE | 2023-02-15 16:30 | NUR ---
Late Entry for 02/15/23@1200: The following was taken from the patients H&P: This 87 yr. old male came from home to the ER for evaluation of dysuria with blood in the urine. A catheter was placed and hematuria returned. He was recently admitted for treatment of UTI and discharged noted to have clear urine at that time. He has a medical history of A-Fib, CAD w/bypass, pacemaker, bladder CA and DM. He is a former tobacco user. He drinks 2-3 beers a day. He denies the use of illicit drugs. He lives alone with family oversight. ABD/pelvic CT was negative for acute findings. Head/neck US revealed multiple right thyroid nodules not meeting criteria for D/U and a left thyroid nodule with recommended F//U in 1, 3 and 5 yrs. His most recent labs show a WBC of 11.4, HGB 8. BUN 23, BG 96 and an albumin of 2.2. He was admitted for evaluation of hematuria with a comorbidity of acute on chronic urinary retention and subsequent UTI per progress notes. Wound care in for evaluation of buttock skin breakdown per nursing consult request. The pt. was found sitting up in bed in no apparent distress with his daughter at the bedside. Greeted and explained the intent. He appears to be A/O x4, agreeable to care. Skin was assessed. He has a small area to the soft tissue of his right buttock that has moist red partial skin loss, blanching with pink surrounding skin consistent with abraded skin seen with friction and shearing. Both of his heels have intact pink and blanching skin. The remainder off his skin assessment was unremarkable. He was assisted to reposition and heels floated. Bed left in the lowest position, call light/personal items in reach.
== END 2023-02-15 14:20 | DRG 686 ==
LOC: ER 10:56 → ED HOLD 15:05 → ORTHO 4S 02-12 00:55
PROVIDERS: ADMIT Family Medicine; ATTEND Family Medicine
DX: D49.4 Neoplasm of unspecified behavior of bladder (principal); N17.0 Acute kidney failure with tubular necrosis; E87.1 Hypo-osmolality and hyponatremia; I50.22 Chronic systolic (congestive) heart failure; N39.0 Urinary tract infection, site not specified; N17.9 Acute kidney failure, unspecified; R31.0 Gross hematuria; E11.22 Type 2 diabetes mellitus with diabetic chronic kidney disease; I12.9 Hypertensive chronic kidney disease with stage 1 through stage 4 chronic kidney disease, or unspecified chronic kidney disease; I25.10 Atherosclerotic heart disease of native coronary artery without angina pectoris; Z60.2 Problems related to living alone; I48.91 Unspecified atrial fibrillation; E78.5 Hyperlipidemia, unspecified; Z85.51 Personal history of malignant neoplasm of bladder; N18.9 Chronic kidney disease, unspecified; Z87.891 Personal history of nicotine dependence; Z95.1 Presence of aortocoronary bypass graft; Z95.0 Presence of cardiac pacemaker
CPT/HCPCS: 36415; 74176; 76536; 80053; 80061; 80162; 81001; 82948; 83605; 83735; 84100; 84132; 84439; 84443; 85025; 85610; 85730; 87040; 87081; 87088; 92508; 92616; 97116; 97161; 97530; 99285; A4314; A4346; A4355; A4358; A5200; A6212; A6213; G0378; J0696; J1815; J7030

== ENCOUNTER 2023-02-23 12:01 | Emergency (ER) | payer OTHER, MEDICARE ==
[~2023-02-23] VITALS: Ht 188 cm; Wt 181.5 kg
[~2023-02-23 12:01] MED LIST changes: +ALOG12.5 PO; -APIX5TAB3 PO; +DICL100G59 TOP; +DIGO250T4 PO; +DOXA4TAB3 PO; +FLO0.4C PO; +LACT1CAP74 PO; -LEVO-65 PO; +LOSA100T58 PO; +OMEP20CA16 PO; +SIMV-342 PO; +SPIR25TA5 PO
[2023-02-23 12:33] VITALS: BP 133/71; PULSE 67; RESP 17; TEMP 97; O2SAT 99
[2023-02-23 13:25] LABS: BILIRUBIN,URINE NEGATIVE (Neg); CLARITY,URINE CLOUDY (Clear); COLOR,URINE AMBER (Yellow); GLUCOSE, URINE NEGATIVE (Neg); KETONES,URINE NEGATIVE (Neg); LEUKOCYTE ESTERASE ,URINE MODERATE (Neg); NITRITES, URINE NEGATIVE (Neg); OCCULT BLOOD,URINE LARGE (Neg); PH,URINE 5.5 (4.8-8.0); PROTEIN,URINE 100 mg/dl (Neg); UROBILINOGEN,URINE 0.2 E.U/dL (0.2-1.0)
[2023-02-23 13:29] LABS: UA COLLECTION TYPE FOLEY CATH
[2023-02-23 13:31] LABS: SQUAMOUS EPITHELIAL CELL,UR FEW /LPF (FEW)
[2023-02-23 13:32] LABS: BACTERIA,URINE 1+ /HPF (Neg); RBC,URINE TNTC /HPF (0-2); WBC CLUMPS,URINE MODERATE /HPF (NEGATIVE); WBC,URINE TNTC /HPF (0-4)
[2023-02-23] MEDS ORDERED: CEFD300C3 PO (13:55)
== END 2023-02-23 15:29 | disposition home or self-care (01) ==
LOC: ER 12:02
DX: T83.511A Infection and inflammatory reaction due to indwelling urethral catheter, initial encounter (principal); R31.9 Hematuria, unspecified
CPT/HCPCS: 81001; 87088; 99283

== ENCOUNTER 2024-11-23 12:08 | Emergency (ER) | payer OTHER, MEDICARE, MEDICAID ==
[~2024-11-23] VITALS: Ht 188 cm; Wt 88.0 kg
[~2024-11-23 12:08] MED LIST changes: +ACET-890 PO; -ALOG12.5 PO; +ALOG12.52 PO; +APIX2.5T PO; +ASPI-1071 PO; +BISA10SU60 RC; +DOCU100C40 PO; -DOXA4TAB3 PO; +EMPA10TA PO; +FERR1TAB25 PO; -FLO0.4C PO; -LACT1CAP74 PO; -LOSA100T58 PO; +METO-384 PO; -METO50TA16 PO; -OMEP20CA16 PO; +OXYC-658 PO; +SENN-360 PO; -SPIR25TA5 PO; +TAMS-55 PO; +VIT1CAPS46 PO
[2024-11-23 12:15] VITALS: BP 103/62; PULSE 95; RESP 15; TEMP 98.2; O2SAT 96
--- NOTE | 2024-11-23 12:21 | Physician Documentation ---
History of Present Illness ~ Chief Complaint: Mechanical Fall Stated Complaint: FALL Time Seen by MD: 12:16 Primary Medical Doctor: DR. ANGEL-[place] Source: patient Mode of Arrival: EMS Exam Limitations: no limitations HPI 89-year-old male brought in by ambulance from the [place] home due to a fall out of bed with positive head strike. Patient is on Eliquis. No reported loss of consciousness however fall was not witnessed. Patient has no complaints at this time other than neck pain. Patient is in cervical collar. No pain in extremities, lower back, numbness, weakness. Patient has urinary incontinence at baseline, wears depends. Tetanus within 5 Years?: Yes Medication Reconciliation Allergies: Coded Allergies: CLARITA Inhibitors (Verified Allergy, Mild, 11/23/24) spironolactone (Verified Allergy, Mild, 11/23/24) Uncoded Allergies: ANGIOTENSION RECEPTOR BLOCKERS (Allergy, Mild, 06/28/24) Scheduled Alogliptin Benzoate (Alogliptin), 1 TAB PO DAILY, (Reported) Apixaban (Eliquis), 1 TAB PO Q12H, (Reported) Aspirin (Ecotrin*), 1 TAB PO DAILY, (Reported) Digoxin (LANOXIN tablet), 1 TAB PO DAILY, (Reported) Empagliflozin (Jardiance), 10 MG PO DAILY Ferrous Sulfate/Vit C/FA (Folitab 500 Caplet), 1 TAB PO BID Furosemide (Furosemide), 1 TAB PO DAILY, (Reported) Metoprolol Succinate (Metoprolol Succinate), 1 TAB PO DAILY Simvastatin (Zocor), 1 TAB PO QPM, (Reported) Tamsulosin Hcl* (Flomax*), 1 CAP PO DAILY, (Reported) Vit C/E/Zn/Coppr/Lutein/Zeaxan (Preservision Areds 2 Softgel), 1 CAP PO Q12H, (Reported) Scheduled PRN Acetaminophen (Tylenol), 2 TAB PO Q6H PRN for pain or fever, (Reported) Bisacodyl (Dulcolax), 1 SUPP RC DAILY PRN for constipation, (Reported) Diclofenac Sodium (Diclofenac Sodium), 1 APPLIC TOP DAILY PRN for KNEE PAIN, (Reported) Docusate Sodium (Docusate Sodium), 1 CAP PO DAILY PRN for constipation, (Reported) Oxycodone Hcl IR* (Oxycodone IR*), 1 TAB PO Q4H PRN for moderate or severe pain 4-10, (Reported) Sennosides (Senna), 2 TAB PO Q12H PRN for constipation, (Reported) Past Medical History Past Medical History: Atrial Fibrillation, Coronary Artery Disease, Hypertension, Hematuria, UTI, Diabetes, *CANCER* Past Surgical History: coronary bypass surgery, pacemaker Patient History: UNKOWN Alcohol Use: Rarely Drug Use: none Lives with: Alone Lives In: Home Review of Systems All Other Systems at this time: Reviewed and Negative Physical Exam Vital Signs: Temperature: 98.2, Source: Oral, Heart Rate: 95, Respiratory Rate: 15, BP: 103/62, Pulse Oximetry: 96, Weight: 88.000 Physical Exam GENERAL: Alert, no acute distress. IN CERVICAL COLLAR PLACED BY EMS. HEENT: ECCHYMOSIS AROUND LEFT EYE, FOREHEAD. EOMI, PERRL, normal oropharynx, moist oral mucosa. NECK: Supple, trachea midline. CARDIAC: Regular rate and rhythm, no murmurs, rubs, or gallops. Equal distal pulses. No lower extremity edema, cap refill less than 2 seconds. RESPIRATORY: Equal breath sounds, clear to auscultation bilaterally, no respiratory distress. GASTROINTESTINAL: Non distended, soft, nontender, No guarding or rebound. MUSCULOSKELETAL: Normal range of motion, nontender, no swelling. NEUROLOGICAL: Awake, alert, and oriented x 3. SKIN: Warm/dry, no pallor, no rash. PSYCH: Alert and appropriate. Affect congruent with mood. Speech is clear. Good eye contact. Progress Progress Note CT SCAN DONE OF HEAD, FACE, AND CERVICAL SPINE-SEE ATTACHED REPORTS CT OF HEAD NEGATIVE FOR ACUTE FINDINGS CT OF FACE POSITIVE FOR LEFT MAXILLARY FRACTURE CT OF CERVICAL SPINE POSITIVE FOR NONDISPLACED FX OF INFERIOR ENDPLATE OF C6 Results/Orders Results/Orders Orders - SYBIL LOCKHART Ct Cervical Spine (11/23/24 12:16) Ct Facial Bones/Soft Tissue (11/23/24 12:16) Ct Head (11/23/24 12:16) Cbc/Diff (11/23/24 12:16) Pt Inr (11/23/24 12:16) PTT (11/23/24 12:16) BMP (11/23/24 12:16) Completed Orders - SYBIL LOCKHART Ct Cervical Spine (11/23/24 12:16) Ct Facial Bones/Soft Tissue (11/23/24 12:16) Ct Head (11/23/24 12:16) Vital Signs 11/23/24 11/23/24 11/23/24 12:10 12:15 12:27 Temp 98.2 98.2 Pulse 101 95 Resp 15 15 B/P (MAP) 103/62 103/62 (76) Pulse Ox 94 96 Laboratory Tests Test 11/23/24 13:08 CBC Comment Chemistry Comments Medical Decision Making Differential Dx:Considerations: Include: Closed head injury, Cardiac injury, Fracture(s), Intraabdominal injury, Pneumothorax, Cerebral contusion, Pulmonary contusion, Spine injury, Tracheal injury, Urological injury, Vascular injury, Abrasion(s), Contusion(s), Foreign body(s), Hematoma(s), Laceration(s), Encephalopathy Departure Time of Disposition: 13:29 Disposition: 01 HOME / SELF CARE / HOMELESS Impression: Primary Impression: Head trauma Qualified Codes: S09.90XA - Unspecified injury of head, initial encounter Additional Impressions: Anticoagulated on Eliquis Facial contusion Qualified Codes: S00.83XA - Contusion of other part of head, initial encounter C6 cervical fracture Qualified Codes: S12.591A - Other nondisplaced fracture of sixth cervical vertebra, initial encounter for closed fracture Maxillary fracture, right side, initial encounter for closed fracture Condition: Stable Discharge Instructions: Stable Cervical Spine Fracture Additional Instructions: PATIENT HAS NONDISPLACED FRACTURE OF INFERIOR ENDPLATE AT C6 HE HAS NO EVIDENCE OF INSTABILITY PATIENT ALSO HAS FRACTURE OF HIS LEFT MAXILLA HEAD CT SCAN WAS UNREMARKABLE PATIENT HAS BEEN DISCHARGED WITH PAIN MEDICATION FOR PAIN CONTROL AND IN A CERVICAL COLLAR RECOMMENDATION IS TO FOLLOW UP WITH PCP NEXT WEEK Referrals: NO PRIMARY CARE PROVIDER (PCP) Prescriptions Hydrocodone Bit/Acetaminophen (Hydrocodone-Apap 10-325 Tablet) 10mg/325mg Tablet 1 TAB PO TID PRN for pain for 7 Days, #21 TAB CERVICAL FRACTURE ICD 10: S12.5 Prov: SYBIL LOCKHART 11/23/24 Education Educated: Patient Educated regarding: diagnosis, treatment, need for follow up Signature Scribe Signature: X Attestation: X SYBIL LOCKHART Nov 23, 2024 12:21
--- NOTE | 2024-11-23 13:00 | RADIOLOGY REPORT ---
CT CT HEAD INDICATION: fall on thinners EXAM DATE: 11/23/2024 12:31 PM COMPARISON: None RADIATION DOSE: CTDIvol: 49 mGy, DLP: 903 mGy*cm PROCEDURE: CT scans of the head were obtained from the vertex to the skull base. Sagittal and coronal reconstructions were provided. All CT scans at this medical facility are performed using dose modulation techniques as appropriate t o a performed exam including the following: Automated exposure control was utilized; adjustment of th e MA and/or KV according to patient size; and use of iterative reconstruction technique. FINDINGS: There is sulcal and ventricular prominence. The brain otherwise shows normal morphology a nd santos-white matter differentiation, without intracranial hemorrhage, extra-axial fluid collection, mass effect or acute large vessel infarct. The basal cisterns are patent. The skull and visible facia l bones are intact. The mastoid air cells and middle ear cavities are well-aerated. Left malar soft t issue contusion with fracture of the left anterior maxillary sinus. IMPRESSION: Left malar soft tissue contusion with fracture of the left anterior maxillary sinus. No acute intracranial abnormality.
--- NOTE | 2024-11-23 13:07 | RADIOLOGY REPORT ---
CT CT FACIAL BONES/SOFT TISSUE INDICATION: fall on thinners EXAM DATE: 11/23/2024 12:34 PM COMPARISON: None RADIATION DOSE: CTDIvol: 54 mGy, DLP: 1215 mGy*cm PROCEDURE: Using the CT scanner, contiguous noncontrast scans were obtained from above the orbital ri ms to below the mandible. Coronal and sagittal reformatted images were then generated. All CT scans at this medical facility are performed using dose modulation techniques as appropriate t o a performed exam including the following: Automated exposure control was utilized; adjustment of th e MA and/or KV according to patient size; and use of iterative reconstruction technique. FINDINGS: Left malar soft tissue contusion with fracture of the left anterior maxillary sinus. The fa cial bones, including the orbits and paranasal sinuses are otherwise intact without evidence of fract ure. The mastoid air cells and middle ear cavities are normally aerated. The orbital contents are nor mal. The soft tissues of the face are unremarkable. IMPRESSION: Left malar soft tissue contusion with fracture of the left anterior maxillary sinus.
[2024-11-23 13:26] LABS: MEAN PLATELET VOLUME 8.6 FL (7.4-10.4); RED CELL DISTRIBUTION WIDTH 13.7 % (11.5-14.5)
--- NOTE | 2024-11-23 13:28 | RADIOLOGY REPORT ---
EXAM: CT CT CERVICAL SPINE INDICATION: fall on thinners EXAM DATE: 11/23/2024 12:36 PM COMPARISON: CT scan of the chest dated 06/28/2024. TECHNIQUE: Noncontrast axial CT images of the cervical spine were performed. Sagittal and coronal ref ormatted images were obtained. Radiation optimization: All CT scans at this facility use at least one of these dose optimization techniques: automated exposure control mA and/or kV adjustment per patie nt size (includes targeted exams where dose is matched to clinical indication) or iterative reconstr uction. Radiation Dose Information: CT Dose: CTDI volume is 20.86 mGy. Dose-length product is 529.27 mGy*cm FINDINGS/ IMPRESSION: 1. Nondisplaced fracture of the C6 inferior endplate anteriorly, without significant loss of disc hei ght. 2. No other fractures are identified about the cervical spine. 3. Chronic superior endplate mild compression fracture of T1. 4. Congenital narrowing of the cervical spinal canal without high-grade spinal canal stenosis at any level in the cervical spine. 5. Moderate degenerative disc disease and advanced facet arthropathy cause significant neural foramin al stenosis at C3-C4 bilaterally, C4-C5 on the right, C5-C6 bilaterally, C6-C7 on the right. These f indings may correspond to upper extremity radicular symptoms in the bilateral C4, right C5, bilateral C6, and right C7 nerve root distributions. 6. Right upper lobe malignant-appearing mass is only partially visualized here, better characterized on prior CT scan of the chest. 7. Bilateral thyroid nodules. These may be better characterized with outpatient thyroid ultrasound on ce the patient's acute condition has resolved. 8. Carotid and vertebral artery atherosclerosis. 9. Postoperative changes of median sternotomy and left chest AICD, not fully imaged here. Critical findings Critical Result: Cervical spine fracture Findings discussed with SYBIL LOCKHART at 11/23/2024 03:21 PM CDT, and acknowledged receipt and under standing of the findings.
[2024-11-23] MEDS ORDERED: HYDR-3973 PO (13:34)
[2024-11-23 13:43] LABS: CREATININE 1.69 MG/DL (0.60-1.10); TOTAL CARBON DIOXIDE 22.5 MMOL/L (24-32); eCRCL 36 ML/MIN; eGFR 39 ML/MIN
[2024-11-23 16:17] LABS: APTT 36 SECONDS (22-32); INR 1.6 INR
== END 2024-11-23 15:58 | disposition home or self-care (01) ==
LOC: ER 12:09
DX: S12.591A Other nondisplaced fracture of sixth cervical vertebra, initial encounter for closed fracture (principal); S00.83XA Contusion of other part of head, initial encounter; E11.9 Type 2 diabetes mellitus without complications; I10 Essential (primary) hypertension; I25.10 Atherosclerotic heart disease of native coronary artery without angina pectoris; I48.91 Unspecified atrial fibrillation; Z79.01 Long term (current) use of anticoagulants; Z88.8 Allergy status to other drugs, medicaments and biological substances; Z87.440 Personal history of urinary (tract) infections; W06.XXXA Fall from bed, initial encounter; Y93.89 Activity, other specified; Y92.89 Other specified places as the place of occurrence of the external cause; Y99.8 Other external cause status
CPT/HCPCS: 36415; 70450; 70486; 72125; 80048; 85025; 85610; 85730; 99284